=== PATIENT | male | born 1970 | race Native Hawaiian/Other Pacific Islander ===

== ENCOUNTER 2017-08-26 04:13 | Emergency (ER) | payer SELFPAY ==
[2017-08-26] MEDS: KETOROLAC TROMETHAMINE 30 MG/1ML VIAL IVP ONE (04:37)
[2017-08-26 05:01] LABS: BASOPHILS % 1.1 (0.0-1.5); EOSINOPHILS % 1.3 % (0.0-6.8); MEAN CORPUSCULAR VOLUME 85.1 fl (80.0-100.0); MONOCYTES % 7.6 % (0.0-11.0); NEUTROPHILS # 4.2 # k/uL (1.4-7.7)
[2017-08-26 05:04] LABS: eGFR (African) > 60; eGFR (Non-African) > 60
--- NOTE | 2017-08-26 05:09 | ED Physician Documentation ---
General Adult - HISTORIAN Historian: patient - HPI Stated Complaint: L ARM BURNING Chief Complaint: General Adult Onset: minutes Timing: still present Severity: mild Further Comments: yes (Pt is a 47 yo male who had a burning sensation in his arm and then generalized that occurred shortly [employer]. Pt took Niacin earlier, but has taken this daily for some time. No chest pain, sob, n/v, diaphoresis.) - ROS CONST: other (flushing) EYES/ENT: none CVS/RESP: none GI/: none MS/SKIN/LYMPH: none - PAST HX Past History: other (HLD) Allergies/Adverse Reactions: Allergies Allergy/AdvReac Type Severity Reaction Status Date / Time No Known Allergies Allergy Verified 08/26/17 04:38 Home Medications: Ambulatory Orders Medication Instructions Recorded Aspirin [Adult Low Dose Aspirin EC] 81 mg PO DAILY 08/26/17 Niacinamide [Niacin] 500 mg PO HS 08/26/17 - SOCIAL HX Smoking History: non-smoker - FAMILY HX Family History: No - VITAL SIGNS Vital Signs: Vital Signs Temp Pulse Resp BP Pulse Ox 97.8 F 67 16 119/78 98 08/26/17 04:13 08/26/17 04:13 08/26/17 04:13 08/26/17 04:13 08/26/17 04:13 - REVIEWED ASSESSMENTS Nursing Assessment Reviewed: Yes Vitals Reviewed: Yes Progress - Progress Progress: Toradol 30 mg IV sx resolved [id number] ? pre-diabetes Hgb A1C pending - EKG/XRAY/CT EKG: NSR (HR=75; normal EKG) ED Results Lab/Radiology - Lab Results Lab Results: Lab Results 08/26/17 08/26/17 04:43 04:43 WBC 7.49 K/ul K/ul (4.00-12.00) RBC 5.35 M/ul H M/ul (3.90-5.20) Hgb 15.5 g/dL g/dL (12.0-18.0) Hct 45.5 % % (37.0-53.0) MCV 85.1 fl fl (80.0-100.0) MCH 29.0 pg pg (28.0-34.0) MCHC 34.1 g/dL g/dL (30.0-36.0) RDW 13.5 % % (11.3-14.3) Plt Count 146 K/mm3 K/mm3 (130-400) Neut % (Auto) 56.5 % % (39.0-79.0) Lymph % (Auto) 30.1 % % (16.0-50.0) Christian % (Auto) 7.6 % % (0.0-11.0) Eos % (Auto) 1.3 % % (0.0-6.8) Baso % (Auto) 1.1 (0.0-1.5) Neut # (Auto) 4.2 # k/uL # k/uL (1.4-7.7) Lymph # (Auto) 2.3 # k/uL # k/uL (0.6-4.0) Christian # (Auto) 0.6 # k/uL # k/uL (0.0-0.9) Eos # (Auto) 0.1 # k/uL # k/uL (0.0-0.6) Baso # (Auto) 0.1 # k/uL # k/uL (0.0-0.5) Reactive Lymphs % 3.4 % % (0.0-5.0) Reactive Lymphs # 0.2 # k/uL # k/uL (0.0-0.8) Sodium 136 mmol/L L mmol/L (137-145) Potassium 3.7 mmol/L mmol/L (3.5-5.1) Chloride 98 mmol/L mmol/L (98-107) Carbon Dioxide 30 mmol/L mmol/L (22-30) BUN 17 mg/dL mg/dL (9-20) Creatinine 1.30 mg/dL H mg/dL (0.66-1.25) Estimated Creat Clear 107 Est GFR ( Amer) > 60 (60 - ) Est GFR (Non-Af Amer) > 60 (60 - ) Glucose 141 mg/dL H mg/dL (74-106) Calcium 8.7 mg/dL mg/dL (8.4-10.2) Total Bilirubin 0.7 mg/dL mg/dL (0.2-1.3) AST 27 U/L U/L (15-46) ALT 38 U/L U/L (13-69) Alkaline Phosphatase 50 U/L U/L (38-126) Total Protein 7.8 g/dL g/dL (6.3-8.2) Albumin 3.9 g/dL g/dL (3.5-5.0) - Orders Orders: ED Orders Category Date Time Status Place IV Lock 1T Care 08/26/17 04:22 Active CBC/PLATELET/DIFF Routine Lab 08/26/17 04:43 Completed CMP Routine Lab 08/26/17 04:43 Completed TROPONIN I (cTnI) Stat Lab 08/26/17 04:43 Completed Ketorolac Tromethamine [Toradol] Med 08/26/17 04:22 Discontinued 30 mg IVP NOW ONE EKG WITH COMPARISON Stat Ther 08/26/17 Ordered General Adult Physical Exam - PHYSICAL EXAM GENERAL APPEARANCE: mild distress EENT: pharynx normal NECK: normal inspection, supple RESPIRATORY: no resp distress, chest non-tender, breath sounds normal CVS: reg rate & rhythm, heart sounds normal ABDOMEN: soft, no organomegaly, normal bowel sounds BACK: normal inspection SKIN: warm/dry, normal color EXTREMITIES: non-tender, normal range of motion, no evidence of injury NEURO: oriented X3, motor nml, sensation nml Discharge Clincal Impression: Probable Niacin side effect, flushing, elevated glucose Referrals: Carlos Robison DO [Primary Care Provider] - Condition: Good Disposition: 01 HOME, SELF-CARE Decision to Admit: NO Decision Time: 05:11
[2017-08-26 05:34] VITALS: BP 111/74
== END 2017-08-26 05:25 | disposition home or self-care (01) ==
LOC: ED 04:13
DX: R73.9 Hyperglycemia, unspecified (principal); R23.2 Flushing
CPT/HCPCS: 80053; 83036; 84484; 85025; J1885; 96374; 99283; S1016